=== PATIENT | male | born 1990 | race Caucasian/White ===

== ENCOUNTER 2018-12-09 21:36 | Emergency (ER) | payer BC ==
[~2018-12-09] VITALS: Ht 180.3 cm; Wt 66.7 kg
[2018-12-09] MEDS ORDERED: AMOXICILLIN/K CLAV 875/125MG TABLET. PO ONE (22:15)
[2018-12-09] MEDS ORDERED: AMOX1TAB61 PO (22:15)
--- NOTE | 2018-12-09 22:15 | PHYS DOC ---
Adult General Chief Complaint Chief Complaint: SHORTNESS OF BREATH HPI HPI Patient is a 28-year-old male who presents with complaint of shortness of breath at work. Patient states that he works as a arc welder apprentice and when he was around a lot of the smoke from welding, he became short of breath and felt like he was wheezy. He indicates that he does have a history of asthma. He states that he used his mother's inhaler but that did not help very much. He states that what helped was when he sat down and rested. He does admit to a cough that he's had over the last couple of days that has been productive of sputum. He also admits to sinus congestion and pain. He denies any fever. He denies any chest pain, lower extremity pain or swelling of the lower extremities.[] Review of Systems Review of Systems Constitutional: Denies fever or chills [] HENT:, Sinus congestion, pain and sore throat [] Respiratory: Positive cough and shortness of breath [] Cardiovascular: No additional information not addressed in HPI [] Integument: Denies rash or skin lesions [] Neurologic: Denies headache, focal weakness or sensory changes [] All other systems were reviewed and found to be within normal limits, except as documented in this note. Current Medications Current Medications Current Medications Medications (Trade) Dose Ordered Sig/Jim Start Time Stop Time Status Last Admin Dose Admin Amoxicillin/ Clavulanate Potassium (Augmentin 875/ 125mg) 1 tab 1X ONCE 12/09/18 22:15 12/09/18 22:16 Allergies Allergies Allergies Coded Allergies Type Severity Reaction Last Updated Verified No Known Drug Allergies 12/09/18 No Physical Exam Physical Exam Constitutional: Well developed, well nourished, no acute distress, non-toxic appearance. [] HENT: Normocephalic, atraumatic, bilateral external ears normal, oropharynx moist, no oral exudates, maxillary and frontal sinuses are tender to palpation and percussion. [] Neck: Normal range of motion, no tenderness, supple, no stridor. [] Cardiovascular:Heart rate regular rhythm, no murmur [] Lungs & Thorax: Bilateral breath sounds clear to auscultation [] Extremities: No tenderness, no cyanosis, no clubbing, ROM intact, no edema. [] Neurologic: Alert and oriented X 3, no focal deficits noted. [] Current Patient Data Vital Signs Vital Signs Date Time Temp Pulse Resp B/P (MAP) Pulse Ox O2 Delivery O2 Flow Rate FiO2 12/09/18 22:00 106 20 132/78 (96) 98 Room Air EKG EKG [] Radiology/Procedures Radiology/Procedures [] Course & Med Decision Making Course & Med Decision Making Pertinent Labs and Imaging studies reviewed. (See chart for details) [] Dragon Disclaimer Dragon Disclaimer This electronic medical record was generated, in whole or in part, using a voice recognition dictation system. Departure Departure: Impression: Primary Impression: Sinusitis Disposition: HOME, SELF-CARE Condition: STABLE Referrals: PCP,NO (PCP) Patient Instructions: Sinusitis Scripts Amoxicillin/Potassium Clav (AUGMENTIN 875-125 TABLET) 1 Each Tablet 1 TAB PO BID for sinusitis, #20 TAB Prov: BERNARDA DE PAZ Jr. DO 12/09/18 Problem Qualifiers Primary Impression: Sinusitis Sinusitis location: unspecified location Chronicity: acute Recurrence: not specified as recurrent Qualified Codes: J01.90 - Acute sinusitis, unspecified BERNARDA DE PAZ Jr. DO Dec 09, 2018 22:15
[2018-12-09 22:39] VITALS: BP 132/78
== END 2018-12-09 22:35 | disposition home or self-care (01) ==
LOC: ER 21:36
DX: J01.90 Acute sinusitis, unspecified (principal)
CPT/HCPCS: 99283